=== PATIENT | female | born 1980 | race Hispanic/Latino ===

== ENCOUNTER → 2018-11-18 | Outpatient (CLI) | payer BC ==
[~2018-11-18] MED LIST: IOPAMIDOL 370 MG/ML 200 ML INFUS..BTL INJ ONE; SODIUM CHLORIDE 0.9% 50ML 50 ML ONE
--- NOTE | 2018-11-18 11:14 | Diagnostic Imaging Report ---
EXAM: CT Abdomen and Pelvis WITH intravenous contrast INDICATION: Abdominal pain COMPARISON: None. TECHNIQUE: Abdomen and pelvis were scanned utilizing a multidetector helical scanner from the lung base to the pubic symphysis after administration of IV contrast. Coronal and sagittal reformations were obtained. Routine protocol was performed. Scan was performed during portal venous phase. IV CONTRAST: 100mL of Isovue 370 ORAL CONTRAST: Water RADIATION DOSE: Total DLP: 636.4 mGy*cm Dose modulation, iterative reconstruction, and/or weight based adjustment of the mA/kV was utilized to reduce the radiation dose to as low as reasonably achievable. FINDINGS: LOWER THORAX: Normal. HEPATOBILIARY: 9 mm posterior right liver hypodensity is too small to adequately characterize. No other focal liver lesions. No biliary ductal dilation. Normal gallbladder. SPLEEN: No splenomegaly. PANCREAS: No focal masses or ductal dilatation. ADRENALS: No adrenal nodules. KIDNEYS/URETERS: No hydronephrosis, stones, or solid mass lesions. PELVIC ORGANS/BLADDER: 3.5 cm cystic right adnexal lesion, likely physiologic follicle. PERITONEUM / RETROPERITONEUM: No free air or fluid. LYMPH NODES: No lymphadenopathy. VESSELS: Unremarkable. GI TRACT: No abnormal bowel thickening. No bowel obstruction. Normal appendix. BONES AND SOFT TISSUES: Small ventral abdominal hernia containing fat. IMPRESSION: Small ventral abdominal hernia containing fat. No bowel obstruction. Signed by: Fawad Garcia MD on 11/18/2018 11:10 AM
== END ==
LOC: CT 08:49
PROVIDERS: ATTEND Family Medicine
DX: R10.9 Unspecified abdominal pain (principal); K43.9 Ventral hernia without obstruction or gangrene
CPT/HCPCS: 74177; 81025; Q9967

== ENCOUNTER → 2018-11-22 | Outpatient (CLI) | payer BC ==
--- NOTE | 2018-11-22 10:01 | Diagnostic Imaging Report ---
Right upper quadrant abdominal ultrasound Clinical History: Right upper quadrant pain Comparison: CT abdomen and pelvis, November 18, 2018 Discussion: Sonographic evaluation of the right upper quadrant of the abdomen is performed. The liver has normal size and measures 14.1 cm in length. There is elevated the liver echogenicity, without focal mass. There is no intra or extrahepatic biliary dilatation. The common bile duct measures 3 mm. The gallbladder has normal appearance, without wall thickening, stones, or pericholecystic fluid. The main portal vein diameter is normal, measuring 11 mm. The pancreatic head, body, and proximal tail demonstrate no abnormality. There is no ascites. The right kidney measures 10.0 cm in length and is normal in size. There is no renal mass, hydronephrosis, or shadowing renal calculus. Segments of the inferior vena cava and aorta visualized demonstrate no abnormality. Impression: 1. Elevated liver echogenicity most consistent with fatty infiltration. Otherwise, unremarkable right upper quadrant ultrasound. Signed by: Dr. Joe Mosqueda MD on 11/22/2018 9:58 AM
== END ==
LOC: US 08:44
PROVIDERS: ATTEND Surgery
DX: R10.11 Right upper quadrant pain (principal)
CPT/HCPCS: 76705